=== PATIENT | female | born 1945 | race Caucasian/White ===

== ENCOUNTER 2017-10-07 07:48 | Observation (INO) | payer MEDICARE ==
[2017-10-07] VITALS (14 sets, daily range): BP systolic 125–208; BP diastolic 65–104; PULSE 59–91; RESP 14–19; TEMP 97.2–98.6; O2SAT 90–97
[~2017-10-07] VITALS: Ht 162.6 cm; Wt 91.0 kg
[2017-10-07] MEDS ORDERED: SODIUM CHLORIDE 0.9% FLUSH 10 ML FLUSH IVF PRN (08:15)
[2017-10-07] MEDS ORDERED: ATOR20TA15 PO (08:16)
[2017-10-07] MEDS ORDERED: antidepressant PO (08:16)
[2017-10-07] MEDS ORDERED: LEVO25TA4 PO (08:16)
--- NOTE | 2017-10-07 08:23 | PD ---
HPI Chief Complaint: Pain: Acute or Chronic Time Seen by Provider: 08:01 Travel History International Travel<30 days: No Contact w/Intl Traveler<30days: No Traveled to known affect area: No History of Present Illness HPI The patient is a 72-year-old female who presents to the emergency department for 2 separate complaints. The patient states she awakened this morning and had pain over the radial aspect of the right thumb. The patient states the area. It be slightly swollen, painful with movement. The patient iced the thumb and second aspirin, now states she is able to move the thumb. The pain is worse with certain movements of the thumb over the radial aspect of the first MCP. She denies any trauma to the affected area. She does note she is right handed. The patient also states she has gained 30 pounds over the last 2 years. The patient states her last several months she's had some increasing shortness of breath which has progressed over the last 2 weeks. The shortness of breath is worse with exertion, alleviated at rest, and not associated with chest pain. She denies any chest pain, orthopnea, proximal nocturnal dyspnea, cough, or history of CHF/COPD. Patient does have a history of hypertension. She denies any previous history of ACS. The patient's primary physician is Dr. Mcintyre and [place], [place]. She states she' s never had a stress test before and hasn't no history of previous CAD or angina. She also notes a history of plantar fasciitis, states she's had difficulty ambulating secondary to pain of the feet over the last several months , is unsure if this is related to her current shortness of breath. The patient did take a full size aspirin, 325 mg this morning. [facility] Past Medical History Narrative Medical Hypertension, hyperlipidemia, hypothyroidism Past Surgical History Hysterectomy: Yes Social History Tobacco Use: No Allergies-Medications (Allergen,Severity, Reaction): Coded Allergies: No Known Allergies (Verified Allergy, Unknown, 10/07/17) Reported Meds & Prescriptions Reported Meds & Active Scripts Active Reported Gabapentin 100 Mg Cap 100 Mg PO HS [antidepressant] 1 Tab PO DAILY pt does not know the name Atorvastatin (Atorvastatin Calcium) 20 Mg Tab 20 Mg PO HS Levothyroxine (Levothyroxine Sodium) 25 Mcg Tab 25 Mcg PO DAILY Review of Systems Except as stated in HPI: all other systems reviewed are Neg General / Constitutional: Positive: Weight Gain HENT: No: Lightheadedness Cardiovascular: Positive: Dyspnea on exertion, No: Chest Pain or Discomfort, Irregular Rhythm, Diaphoresis Respiratory: Positive: Shortness of Breath, No: Cough Gastrointestinal: No: Nausea Musculoskeletal: Positive: Pain Neurologic: No: Dizziness Physical Exam Narrative GENERAL: Awake, alert, pleasant 72-year-old female who appears her stated age and is in no acute respiratory distress. SKIN: Focused skin assessment warm/dry. HEAD: Atraumatic. Normocephalic. EYES: Pupils equal and round. No scleral icterus. No injection or drainage. ENT: No nasal bleeding or discharge. Mucous membranes pink and moist. NECK: Trachea midline. No JVD. CARDIOVASCULAR: Regular rate and rhythm. No murmur appreciated. RESPIRATORY: No accessory muscle use. Clear to auscultation. Breath sounds equal bilaterally. GASTROINTESTINAL: Abdomen soft, non-tender, nondistended. MUSCULOSKELETAL: No obvious deformities. No clubbing. No cyanosis. No edema. Patient has no tenderness of the right thumb over the MCP or interphalangeal joint. Pain is elicited with abduction of the right thumb as well as opposition of the right thumb to the fifth digit of the right hand. Abduction and extension does not exacerbate her symptoms. Positive right radial pulse. NEUROLOGICAL: Awake and alert. No obvious cranial nerve deficits. Motor grossly within normal limits. Normal speech. PSYCHIATRIC: Appropriate mood and affect; insight and judgment normal. Data Data Last Documented VS Vital Signs Date Time Temp Pulse Resp B/P (MAP) Pulse Ox O2 Delivery O2 Flow Rate FiO2 10/07/17 09:20 72 19 153/96 (115) 95 Room Air 10/07/17 07:51 98.6 Orders Orders Complete Blood Count With Diff (10/07/17 08:13) Comprehensive Metabolic Panel (10/07/17 08:13) B-Type Natriuretic Peptide (10/07/17 08:13) Magnesium (Mg) (10/07/17 08:13) Ckmb (Isoenzyme) Profile (10/07/17 08:13) Troponin I (10/07/17 08:13) Iv Access Insert/Monitor (10/07/17 08:13) Electrocardiogram (10/07/17 08:13) Ecg Monitoring (10/07/17 08:13) Oximetry (10/07/17 08:13) Oxygen Administration (10/07/17 08:13) Chest, Single Ap (10/07/17 08:13) Sodium Chloride 0.9% Flush (Ns Flush) (10/07/17 08:15) Finger (Lcv6arb) (10/07/17 ) Labetalol Inj (Trandate Inj) (10/07/17 09:00) Admit Order (Ed Use Only) (10/07/17 10:30) Labs Laboratory Tests Test 10/07/17 08:25 10/07/17 08:50 White Blood Count 5.5 TH/MM3 Red Blood Count 4.19 MIL/MM3 Hemoglobin 13.1 GM/DL Hematocrit 38.7 % Mean Corpuscular Volume 92.4 FL Mean Corpuscular Hemoglobin 31.2 PG Mean Corpuscular Hemoglobin Concent 33.8 % Red Cell Distribution Width 13.1 % Platelet Count 246 TH/MM3 Mean Platelet Volume 9.5 FL Neutrophils (%) (Auto) 59.4 % Lymphocytes (%) (Auto) 28.3 % Monocytes (%) (Auto) 9.4 % Eosinophils (%) (Auto) 2.5 % Basophils (%) (Auto) 0.4 % Neutrophils # (Auto) 3.3 TH/MM3 Lymphocytes # (Auto) 1.6 TH/MM3 Monocytes # (Auto) 0.5 TH/MM3 Eosinophils # (Auto) 0.1 TH/MM3 Basophils # (Auto) 0.0 TH/MM3 CBC Comment DIFF FINAL Differential Comment B-Type Natriuretic Peptide 16 PG/ML Blood Urea Nitrogen 18 MG/DL Creatinine 0.91 MG/DL Random Glucose 117 MG/DL Total Protein 6.7 GM/DL Albumin 3.4 GM/DL Calcium Level 8.7 MG/DL Magnesium Level 2.0 MG/DL Alkaline Phosphatase 79 U/L Aspartate Amino Transf (AST/SGOT) 22 U/L Alanine Aminotransferase (ALT/SGPT) 22 U/L Total Bilirubin 0.5 MG/DL Sodium Level 140 MEQ/L Potassium Level 3.9 MEQ/L Chloride Level 107 MEQ/L Carbon Dioxide Level 22.0 MEQ/L Anion Gap 11 MEQ/L Estimat Glomerular Filtration Rate 60 ML/MIN Total Creatine Kinase 93 U/L Troponin I 0.02 NG/ML Exceptions Acute Myocardial Infarction ASA Not Given on Arrival: Already taken by patient Aspirin Comment: patient took aspirin 325 mg orally prior to arrival MDM Medical Decision Making Medical Screen Exam Complete: Yes Emergency Medical Condition: Yes Medical Record Reviewed: Yes Interpretation(s) EKG reveals normal sinus rhythm with a rate of 78. Low QRS voltage in precordial leads. Last Impressions Chest X-Ray 10/07/17 0813 Signed Impressions: Service Date/Time: Saturday, October 07, 2017 08:24 - CONCLUSION: No acute cardiopulmonary process. There is increased density medial right base which is nonspecific. It may be related to a fat-pad. Butch Shah MD Finger X-Ray 10/07/17 0000 Signed Impressions: Service Date/Time: Saturday, October 07, 2017 08:27 - CONCLUSION: Degenerative change at the first carpometacarpal joint. Butch Shah MD Laboratory Tests Test 10/07/17 08:25 10/07/17 08:50 White Blood Count 5.5 TH/MM3 Red Blood Count 4.19 MIL/MM3 Hemoglobin 13.1 GM/DL Hematocrit 38.7 % Mean Corpuscular Volume 92.4 FL Mean Corpuscular Hemoglobin 31.2 PG Mean Corpuscular Hemoglobin Concent 33.8 % Red Cell Distribution Width 13.1 % Platelet Count 246 TH/MM3 Mean Platelet Volume 9.5 FL Neutrophils (%) (Auto) 59.4 % Lymphocytes (%) (Auto) 28.3 % Monocytes (%) (Auto) 9.4 % Eosinophils (%) (Auto) 2.5 % Basophils (%) (Auto) 0.4 % Neutrophils # (Auto) 3.3 TH/MM3 Lymphocytes # (Auto) 1.6 TH/MM3 Monocytes # (Auto) 0.5 TH/MM3 Eosinophils # (Auto) 0.1 TH/MM3 Basophils # (Auto) 0.0 TH/MM3 CBC Comment DIFF FINAL Differential Comment B-Type Natriuretic Peptide 16 PG/ML Blood Urea Nitrogen 18 MG/DL Creatinine 0.91 MG/DL Random Glucose 117 MG/DL Total Protein 6.7 GM/DL Albumin 3.4 GM/DL Calcium Level 8.7 MG/DL Magnesium Level 2.0 MG/DL Alkaline Phosphatase 79 U/L Aspartate Amino Transf (AST/SGOT) 22 U/L Alanine Aminotransferase (ALT/SGPT) 22 U/L Total Bilirubin 0.5 MG/DL Sodium Level 140 MEQ/L Potassium Level 3.9 MEQ/L Chloride Level 107 MEQ/L Carbon Dioxide Level 22.0 MEQ/L Anion Gap 11 MEQ/L Estimat Glomerular Filtration Rate 60 ML/MIN Total Creatine Kinase 93 U/L Troponin I 0.02 NG/ML Differential Diagnosis Differential diagnosis includes angina, congestive heart failure, deconditioning , cardiomyopathy, bronchitis, pericardial effusion, pneumonia, pulmonary embolism, pleural effusion, arthropathy, gout, pseudogout, tendinitis. Narrative Course IV was established, labs are drawn and sent, and the patient was placed on cardiac telemetry monitoring and continuous pulse oximetry monitoring. Chest x- ray was obtained. X-ray of the right thumb was obtained. EKG was ordered and interpreted. The patient took aspirin prior to arrival. Chest x-ray reveals no acute Arnie pulmonary findings, possible fat pad right lung. X-ray of the right thumb reveals degenerative changes at the metacarpophalangeal joint of the thumb. Patient's blood pressure was elevated with systolic greater than 200 , therefore, patient was administered labetalol 20 mg intravenously. The patient's blood pressure improved significantly with a systolic of 150s and a diastolic in the 80s. BNP was 16. Troponin was 0.02. The patient does have elevated blood pressure, may benefit from antihypertensive treatment. The patient does have exertional shortness of breath which has been progressing, could be variant angina, after discussion with the patient regarding outpatient follow-up with cardiology for possible echocardiogram/stress test versus 23 hour observation to the chest pain center for possible stress test, the patient would prefer to be 23 hour observation. I think this is reasonable with her exertional shortness of breath with another obvious diagnosis. Physician Communication Physician Communication The patient will be 23 hour observation to the chest pain center for serial cardiac enzymes and further evaluation by cardiology for possible stress test. Diagnosis Primary Impression: Exertional dyspnea Admitting Information Admitting Physician Requests: Observation Condition: Stable Gabe De Santiago MD Oct 07, 2017 08:23
[2017-10-07 08:32] LABS: AUTOMATED NEUTROPHIL # 3.3 TH/MM3 (1.8-7.7); BASOPHIL % 0.4 % (0.0-2.0); EOSINOPHIL # 0.1 TH/MM3 (0-0.4); EOSINOPHIL % 2.5 % (0.0-4.0); HEMATOCRIT 38.7 % (35.0-46.0); HEMOGLOBIN 13.1 GM/DL (11.6-15.3); LYMPH % 28.3 % (9.0-44.0); LYMPHOCYTE # 1.6 TH/MM3 (1.0-4.8); MEAN CELL VOLUME 92.4 FL (80.0-100.0); MEAN CORPUSCULAR HEMOGLOBIN 31.2 PG (27.0-34.0); MEAN CORPUSCULAR HGB CONC 33.8 % (32.0-36.0); MEAN PLATELET VOLUME 9.5 FL (7.0-11.0); MONO % 9.4 % (0.0-8.0); MONOCYTE # 0.5 TH/MM3 (0-0.9); NEUT % 59.4 % (16.0-70.0); PLATELET COUNT 246 TH/MM3 (150-450); RED BLOOD COUNT 4.19 MIL/MM3 (4.00-5.30); RED CELL DISTRIBUTION WIDTH 13.1 % (11.6-17.2); WHITE BLOOD COUNT 5.5 TH/MM3 (4.0-11.0)
--- NOTE | 2017-10-07 08:43 | RADRPT ---
EXAM DATE/TIME: 10/07/2017 08:24 [facility] COMPARISON: No previous studies available for comparison. INDICATIONS : Patient complains of shortness of breath. MEDICAL HISTORY : None. SURGICAL HISTORY : None. ENCOUNTER: Initial ACUITY: 3 weeks PAIN SCORE: 0/10 LOCATION: chest FINDINGS: No prior exams are available for comparison. The heart size is normal. There is increased density at the medial right base at the cardiophrenic region. This is nonspecific. It may be related to an epica rdial fat-pad. Lungs appear grossly clear. No effusion is seen. The bony structures are intact. CONCLUSION: No acute cardiopulmonary process. There is increased density medial right base which is nonspecific. It may be related to a fat-pad. Butch Shah MD on October 07, 2017 at 8:40 Board Certified Radiologist. This report was verified electronically.
--- NOTE | 2017-10-07 08:44 | RADRPT ---
EXAM DATE/TIME: 10/07/2017 08:27 [facility] COMPARISON: No previous studies available for comparison. INDICATIONS : Patient complains of right hand, 1st digit pain at vince of 1st metacarpal. No known injury. MEDICAL HISTORY : None. SURGICAL HISTORY : None. ENCOUNTER: Initial ACUITY: 1 day PAIN SCORE: 5/10 LOCATION: Right Hand, 1st digit. FINDINGS: No fracture is seen. There is hypertrophic change at the first carpometacarpal joint and at the base of the first metacarpal. CONCLUSION: Degenerative change at the first carpometacarpal joint. Butch Shah MD on October 07, 2017 at 8:41 Board Certified Radiologist. This report was verified electronically.
[2017-10-07] MEDS ORDERED: LABETALOL HCL 100 MG/20 ML VIAL IV PUSH ONE (09:00)
[2017-10-07 09:30] LABS: ALBUMIN 3.4 GM/DL (3.4-5.0); AST (GOT) 22 U/L (15-37); BLOOD UREA NITROGEN 18 MG/DL (7-18); CALCIUM 8.7 MG/DL (8.5-10.1); CHLORIDE 107 MEQ/L (98-107); CREATININE 0.91 MG/DL (0.50-1.00); GLOMERULAR FILTRATION RATE 60 ML/MIN (>89); GLUCOSE,RANDOM 117 MG/DL (74-106); SODIUM (NA) 140 MEQ/L (136-145)
[2017-10-07 09:31] LABS: ALT (GPT) 22 U/L (10-53)
[2017-10-07 09:35] LABS: ALKALINE PHOSPHATASE 79 U/L (45-117); TOTAL BILIRUBIN ADULT 0.5 MG/DL (0.2-1.0); TOTAL PROTEIN 6.7 GM/DL (6.4-8.2); TROPONIN I 0.02 NG/ML (0.02-0.05)
[2017-10-07] MEDS ORDERED: NITROGLYCERIN 0.4 MG SL 25 TABS/BTL SL PRN (11:15)
[2017-10-07] MEDS ORDERED: ONDANSETRON HCL 4 MG/2 ML VIAL IV PUSH PRN (11:15)
[2017-10-07] MEDS ORDERED: ACETAMINOPHEN 500 MG CPLT PO PRN (11:15)
[2017-10-07 12:32] LABS: TROPONIN I 0.03 NG/ML (0.02-0.05)
[2017-10-07] MEDS ORDERED: GABA100C4 PO (12:43)
--- NOTE | 2017-10-07 15:43 | HHI.HP ---
HPI Service [facility] Primary Care Physician Francisco Javier Vigil DO Chief Complaint SORE THUMB After presentation it was noted her BP was elevated and on questioning complained about being short of breath History of Present Illness 72 YO woman presented to ED because she had a sore right thumb but after evaluation it was noted her BP was over 200 and on questioning her about BP she began to talk about being short of breath. It is probably pertinent to note that she has gained fairly massive amount of weight over the last year and that she is less active than she was previously. However, she is now noticing that when she walks or exerts she becomes SOB (PAREDES). She denies chest pain, pressure , tightness, arm, neck or jaw pain and has no associated symptoms to suggest anginal equivalent. She also has no edema, orthopnea, PND. She tells me that she does not have a history of HTN although she is on a med. She has no history of respiratory problems such as asthma, COPD and denies any recent illness. She had a stress test in 2016 in [place] and believes it was normal. She denies any other symptoms. Review of Systems Consitutional: COMPLAINS OF: Weight gain HEENT: COMPLAINS OF: Change in hearing Respiratory: COMPLAINS OF: See HPI Cardiovascular: COMPLAINS OF: See HPI Musculoskeletal: COMPLAINS OF: Joint pain Psychiatric: COMPLAINS OF: Anxiety, Depression Endocrine: COMPLAINS OF: Weight gain, Thyroid disease Past Family Social History Allergies: Coded Allergies: No Known Allergies (Verified Allergy, Unknown, 10/07/17) Past Medical History Hypothyroid Anxiety-depression Thumb Pain Past Surgical History \Hysterectomy C Section Vaginal reconstruction Disc Neck Reported Medications Reported Meds & Active Scripts Active Reported Gabapentin 100 Mg Cap 100 Mg PO HS [antidepressant] 1 Tab PO DAILY pt does not know the name Atorvastatin (Atorvastatin Calcium) 20 Mg Tab 20 Mg PO HS Levothyroxine (Levothyroxine Sodium) 25 Mcg Tab 25 Mcg PO DAILY Active Ordered Medications Current Medications Medications (Trade) Dose Ordered Sig/Sima Route Start Time Stop Time Status Last Admin (NS Flush) 2 ml UNSCH PRN IVF 10/07/17 08:15 (NS Flush) 2 ml BID IV FLUSH 10/07/17 21:00 (Tylenol) 500 mg Q4H PRN PO 10/07/17 11:15 (Zofran Inj) 4 mg Q6H PRN IV PUSH 10/07/17 11:15 (Nitrostat Sl) 0.4 mg Q5M PRN SL 10/07/17 11:15 (Aspirin) 325 mg DAILY PO 10/08/17 09:00 Family History Father of traumatic drowning Mother at 92 of heart related issues Brother of Guillain [place] Brother with Bipolar disease (street person) Sister living and well Social History No tobacco or alcohol employed at answering service Physical Exam Vital Signs Vital Signs Date Time Temp Pulse Resp B/P (MAP) Pulse Ox O2 Delivery O2 Flow Rate FiO2 10/07/17 12:55 68 10/07/17 12:52 94 Room Air 10/07/17 12:46 97.2 63 18 173/81 (111) 94 10/07/17 11:17 97.8 62 18 190/84 (119) 96 10/07/17 11:08 72 18 151/90 (110) 95 10/07/17 09:20 72 19 153/96 (115) 95 Room Air 10/07/17 08:50 77 20 10/07/17 08:45 79 17 208/104 (138) 95 Room Air 10/07/17 08:27 94 Room Air 10/07/17 07:51 98.6 91 14 200/92 (128) 97 Physical Exam GENERAL: Obese but resting comfortably SKIN: Warm and dry. HEAD: Atraumatic. Normocephalic. EYES: Pupils equal and round. No scleral icterus. No injection or drainage. EOMI ENT: No nasal bleeding or discharge. Mucous membranes pink and moist. NECK: Trachea midline. No JVD. CARDIOVASCULAR: Regular rate and rhythm. No GRM RESPIRATORY: No accessory muscle use. Clear to auscultation. Breath sounds equal bilaterally. GASTROINTESTINAL: Abdomen soft, non-tender, nondistended. Hepatic and splenic margins not palpable. MUSCULOSKELETAL: Extremities without clubbing, cyanosis, or edema. No obvious deformities. NEUROLOGICAL: Awake and alert. No obvious cranial nerve deficits. Motor grossly within normal limits. Five out of 5 muscle strength in the arms and legs. Normal speech. PSYCHIATRIC: Appropriate mood and affect; insight and judgment normal. Laboratory Laboratory Tests Test 10/07/17 08:25 10/07/17 08:50 10/07/17 11:52 White Blood Count 5.5 Red Blood Count 4.19 Hemoglobin 13.1 Hematocrit 38.7 Mean Corpuscular Volume 92.4 Mean Corpuscular Hemoglobin 31.2 Mean Corpuscular Hemoglobin Concent 33.8 Red Cell Distribution Width 13.1 Platelet Count 246 Mean Platelet Volume 9.5 Neutrophils (%) (Auto) 59.4 Lymphocytes (%) (Auto) 28.3 Monocytes (%) (Auto) 9.4 Eosinophils (%) (Auto) 2.5 Basophils (%) (Auto) 0.4 Neutrophils # (Auto) 3.3 Lymphocytes # (Auto) 1.6 Monocytes # (Auto) 0.5 Eosinophils # (Auto) 0.1 Basophils # (Auto) 0.0 CBC Comment DIFF FINAL Differential Comment B-Type Natriuretic Peptide 16 Blood Urea Nitrogen 18 Creatinine 0.91 Random Glucose 117 Total Protein 6.7 Albumin 3.4 Calcium Level 8.7 Magnesium Level 2.0 Alkaline Phosphatase 79 Aspartate Amino Transf (AST/SGOT) 22 Alanine Aminotransferase (ALT/SGPT) 22 Total Bilirubin 0.5 Sodium Level 140 Potassium Level 3.9 Chloride Level 107 Carbon Dioxide Level 22.0 Anion Gap 11 Estimat Glomerular Filtration Rate 60 Total Creatine Kinase 93 88 Troponin I 0.02 0.03 Result Diagram: 10/07/17 0825 10/07/17 0850 Imaging CXR minimal questionable change probably fat pad Course Has RO for ACS and cannot walk for ETT so STAR scan ordered Caprini VTE Risk Assessment Caprini VTE Risk Assessment: Mod/High Risk (score >= 2) Caprini Risk Assessment Model Point Value = 1 Point Value = 2 Point Value = 3 Point Value = 5 Age 41-60 Minor surgery BMI > 25 kg/m2 Swollen legs Varicose veins or History of unexplained or recurrent spontaneous Oral contraceptives or hormone replacement Sepsis (< 1 month) Serious lung disease, including pneumonia (< 1 month) Abnormal pulmonary function Acute myocardial infarction Congestive heart failure (< 1 month) History of inflammatory bowel disease Medical patient at bed rest Age 61-74 Arthroscopic surgery Major open surgery (> 45 min) Laparoscopic surgery (> 45 min) Malignancy Confined to bed (> 72 hours) Immobilizing plaster cast Central venous access Age >= 75 History of VTE Family history of VTE Factor V Leiden Prothrombin [id number] Lupus anticoagulant Anticardiolipin antibodies Elevated serum homocysteine Heparin-induced thrombocytopenia Other congenital or acquired thrombophilia Stroke (< 1 month) Elective arthroplasty Hip, pelvis, or leg fracture Acute spinal cord injury (< 1 month) Prophylaxis Regimen Total Risk Factor Score Risk Level Prophylaxis Regimen 0-1 Low Early ambulation 2 Moderate Order ONE of the following: *Sequential Compression Device (SCD) *Heparin 5000 units SQ BID 3-4 Higher Order ONE of the following medications: *Heparin 5000 units SQ TID *Enoxaparin/Lovenox 40 mg SQ daily (WT < 150 kg, CrCl > 30 mL/min) *Enoxaparin/Lovenox 30 mg SQ daily (WT < 150 kg, CrCl > 10-29 mL/min) *Enoxaparin/Lovenox 30 mg SQ BID (WT < 150 kg, CrCl > 30 mL/min) AND/OR *Sequential Compression Device (SCD) 5 or more Highest Order ONE of the following medications: *Heparin 5000 units SQ TID (Preferred with Epidurals) *Enoxaparin/Lovenox 40 mg SQ daily (WT < 150 kg, CrCl > 30 mL/min) *Enoxaparin/Lovenox 30 mg SQ daily (WT < 150 kg, CrCl > 10-29 mL/min) *Enoxaparin/Lovenox 30 mg SQ BID (WT < 150 kg, CrCl > 30 mL/min) AND *Sequential Compression Device (SCD) Assessment and Plan Problem List: (1) Exertional dyspnea ICD Codes: R06.09 - Other forms of dyspnea Status: Acute Plan: RO ischemic heart disease as possible etiology Most likely weight gain and deconditioning Marbin Antonio MD Oct 07, 2017 15:43
[2017-10-07 16:09] LABS: TROPONIN I 0.03 NG/ML (0.02-0.05)
[2017-10-07] MEDS ORDERED: TEMAZEPAM 15 MG CAP PO PRN (16:30)
[2017-10-07] MEDS ORDERED: ACETAMINOPHEN/HYDROcodone 325 MG/5 MG TAB PO PRN (16:30)
[2017-10-07] MEDS ORDERED: amLODIPine BESYLATE 5 MG TAB PO ONE (18:45)
[2017-10-07] MEDS ORDERED: ATORVASTATIN 20 MG TAB PO SCH (21:00)
[2017-10-07] MEDS ORDERED: GABAPENTIN 100 MG CAP PO SCH (21:00)
[2017-10-07] MEDS: SODIUM CHLORIDE 0.9% FLUSH 10 ML FLUSH IV FLUSH SCH (21:26)
--- NOTE | 2017-10-07 22:00 | EKG ---
Date Performed: 10/07/2017 Time Performed: 15:03:07 PTAGE: 72 years EKG: Sinus rhythm NORMAL ECG PREVIOUS TRACING : 10/07/2017 12.25 Compared to prior tracing no significant change DOCTOR: Baudilio Loyola Interpretating Date/Time 10/07/2017 21:58:35
[2017-10-08] VITALS (7 sets, daily range): BP systolic 119–169; BP diastolic 62–81; PULSE 61–68; RESP 18; TEMP 98; O2SAT 91–94
[2017-10-08] MEDS ORDERED: amLODIPine BESYLATE 5 MG TAB PO PRN (01:00)
[2017-10-08] MEDS ORDERED: LEVOTHYROXINE SODIUM 25 MCG TAB PO SCH (06:00)
[2017-10-08] MEDS ORDERED: ASPIRIN 325 MG TAB PO SCH (09:00)
[2017-10-08] MEDS ORDERED: REGADENOSON INJ 0.4 MG/5 ML SYR ONE (09:16)
--- NOTE | 2017-10-08 10:32 | RADRPT ---
EXAM DATE/TIME: 10/08/2017 09:08 [facility] COMPARISON: No previous studies available for comparison. INDICATIONS : Chest pain. Angina. DOSE: 25.8 mCi Tc99m Myoview at stress. 8.2 mCi Tc99m Myoview at rest. 0.4 mg Lexiscan STRESS SYMPTOMS: Short of breath and headache. EJECTION FRACTION: 65% MEDICAL HISTORY : Hypertension. SURGICAL HISTORY : Hysterectomy. Vaginal reconstruction. ENCOUNTER: Initial ACUITY: 1 day PAIN SCALE: 3/10 LOCATION: Substernal chest TECHNIQUE: The patient underwent pharmacologic stress with infusion of prescribed dose. Continuous ECG tracing was monitored during stress. Gated SPECT imaging was performed after stress and conventional SPECT i maging was performed at rest. The examination was performed on a SPECT/CT scanner, both attenuation and non-corrected datasets were reviewed. FINDINGS: DISTRIBUTION: The maximum perfused segment at stress is in the lateral wall. PERFUSION STUDY: The pattern of perfusion at stress is within normal limits. There is mild decreased activity in the m id ventricle at the anterior wall on the stress image compared to the rest images in the order of 10% which is typically within normal variation. GATED STUDY: There is intact wall motion and thickening without hypokinetic or dyskinetic segments. CONCLUSION: No areas of ischemia are seen. RISK CATEGORY: Low (<1% Annual Mortality Rate) Butch Shah MD on October 08, 2017 at 10:26 Board Certified Radiologist. This report was verified electronically.
[2017-10-08] MEDS: SODIUM CHLORIDE 0.9% FLUSH 10 ML FLUSH IV FLUSH SCH (10:39)
--- NOTE | 2017-10-08 10:56 | HHI.DCPOC ---
Discharge Care Plan Diagnosis: (1) Exertional dyspnea (2) HTN (hypertension) Goals to Promote Your Health * To prevent worsening of your condition and complications * To maintain your health at the optimal level Directions to Meet Your Goals Take your medications as prescribed Follow your dietary instruction Follow activity as directed Keep your appointments as scheduled Take your immunizations and boosters as scheduled If your symptoms worsen call your PCP, if no PCP go to Urgent Care Center or Emergency Room Smoking is Dangerous to Your Health. Avoid second hand smoke Call the 24-hour hour crisis hotline for domestic abuse at Mirtha Montelongo Oct 08, 2017 10:56
[2017-10-08] MEDS ORDERED: AMLO5TAB2 PO (12:29)
--- NOTE | 2017-10-08 13:10 | EKG ---
Date Performed: 10/07/2017 Time Performed: 12:25:46 PTAGE: 72 years EKG: Sinus rhythm WITH SINUS ARRHYTHMIA NORMAL ECG NO CHANGE PREVIOUS TRACING : 10/07/2017 08.19 DOCTOR: Marbin Antonio Interpretating Date/Time 10/08/2017 13:09:38
--- NOTE | 2017-10-08 13:12 | EKG ---
Date Performed: 10/07/2017 Time Performed: 08:19:10 PTAGE: 72 years EKG: Sinus rhythm LOW QRS VOLTAGE IN PRECORDIAL LEADS POSSIBLE ANTERIOR MYOCARDIAL INFARCTION ABNORMAL ECG NO PREVIOUS TRACING DOCTOR: Marbin Antonio Interpretating Date/Time 10/08/2017 13:10:19
--- NOTE | 2017-10-08 13:32 | TR ---
Date Performed: 10/08/2017 Time Performed: 09:29:09 DOCTOR: Marbin Antonio DRUG LIST: CLINICAL HISTORY: REASON FOR TEST: REASON FOR ENDING: OBSERVATION: CONCLUSION: Lexiscan stress test was performed under standard four minute protocol. Radionuclide was injected one minute prior to ending the test. No electrocardiographic abormalities were present to suggest ischemia. Nuclear imaging and interpretation are pending. COMMENTS:
== END 2017-10-08 13:03 | disposition home or self-care (01) ==
LOC: NEPE 07:48 → NEDA 10:32 → NEPGCP 11:14
PROVIDERS: ADMIT Internal Medicine Interventional Cardiology; ATTEND Internal Medicine Interventional Cardiology
DX: R06.09 Other forms of dyspnea (principal); I10 Essential (primary) hypertension; R94.31 Abnormal electrocardiogram [ECG] [EKG]; M72.2 Plantar fascial fibromatosis; E78.5 Hyperlipidemia, unspecified; E03.9 Hypothyroidism, unspecified; Z90.710 Acquired absence of both cervix and uterus
CPT/HCPCS: 71010; 73140; 78452; 80053; 82550; 83735; 83880; 84484; 85025; 93005; 93017; 96374; 99285; A9502; G0378; J2785